=== PATIENT | female | born 2000 | race African-American/Black ===

== ENCOUNTER 2023-06-15 19:36 | Emergency (ER) | payer MEDICAID, OTHER ==
[~2023-06-15] VITALS: Ht 170.2 cm; Wt 96.3 kg
[2023-06-15 19:53] VITALS: BP 143/85; O2SAT 97
[2023-06-15 21:58] VITALS: PULSE 97; RESP 16; TEMP 98.7
== END 2023-06-15 22:07 | disposition home or self-care (01) ==
LOC: ER 20:07
DX: M79.672 Pain in left foot (principal)
CPT/HCPCS: 73630; 81025; 99283

== ENCOUNTER 2023-10-27 18:34 | Emergency (ER) | payer OTHER ==
[~2023-10-27] VITALS: Ht 170.2 cm; Wt 90.0 kg
[2023-10-27 18:42] VITALS: O2SAT 99
[2023-10-27] MEDS: DEXAMETHASONE 10 MG/ML VIAL PO ONE (20:37)
[2023-10-27 21:40] VITALS: PULSE 84; RESP 20
[2023-10-27] MEDS: IPRATROPIUM/ALBUTEROL 0.5-3(2.5)MG/3ML NEB HHN ONE (21:40)
[2023-10-27] MEDS ORDERED: ALBU6.7H15 INH (21:55)
[2023-10-27 22:08] VITALS: BP 160/68; PULSE 96; RESP 20; TEMP 98
== END 2023-10-27 22:09 | disposition home or self-care (01) ==
LOC: ER 18:34
DX: J44.1 Chronic obstructive pulmonary disease with (acute) exacerbation (principal); Z88.0 Allergy status to penicillin
CPT/HCPCS: 94640; 99283; J1100; Z7610 ×3

== ENCOUNTER 2024-09-23 15:13 | Emergency (ER) | payer OTHER ==
[~2024-09-23] VITALS: Ht 170.2 cm; Wt 80.0 kg
[~2024-09-23 15:13] MED LIST: ALBU6.7H15 INH
[2024-09-23 15:25] VITALS: O2SAT 98
[2024-09-23 15:33] VITALS: BP 133/67; TEMP 98.1
[2024-09-23 18:49] VITALS: PULSE 104; RESP 20; O2SAT 99
[2024-09-23] MEDS: IPRATROPIUM/ALBUTEROL 0.5-3(2.5)MG/3ML NEB HHN ONE (18:49)
[2024-09-23] MEDS ORDERED: P50 MT (19:04)
[2024-09-23] MEDS ORDERED: ALBU18HF2 IH (19:04)
[2024-09-23] MEDS: PREDNISONE 20MG TABLET PO ONE (19:40)
== END 2024-09-23 19:47 | disposition home or self-care (01) ==
LOC: ER 15:13
DX: J45.901 Unspecified asthma with (acute) exacerbation (principal); Z88.0 Allergy status to penicillin
CPT/HCPCS: 94640; 99283; J7512; Z7610 ×3